=== PATIENT | female | born 1955 | race African-American/Black ===

== ENCOUNTER → 2022-04-08 10:02 | Outpatient (BNVA) | payer MEDICARE, SELFPAY | PROVIDERS: PCP Internal Medicine; Visit Provider Hospitalist | DX: R05.3 Chronic cough (principal); J45.41 Moderate persistent asthma with (acute) exacerbation | CPT/HCPCS: 94640; 99202 ==

== ENCOUNTER 2022-04-08 10:56 | Outpatient (REF) | payer MEDICARE, SELFPAY ==
[2022-04-08 11:18] LABS: MANUAL DIFF FLAG NO
[2022-04-08 11:47] LABS: Basophils Percent Auto 0.5 % (0-2); Eosinophils Absolute Auto 0.3 X10*3/uL (0.0-0.4); Eosinophils Percent Auto 6.2 % (0-4); Hematocrit 36.1 % (37.0-47.0); Imm Gran Abs Auto 0.01 X10*3/uL (0.00-0.03); Imm Gran Pct Auto 0.2 % (0.0-0.4); Lymphocytes Absolute Auto 0.7 X10*3/uL (1.2-4.9); Lymphocytes Percent Auto 12.6 % (20-40); Mean Corpuscular HGB Conc 30.5 g/dl (31.0-35.0); Mean Corpuscular Volume 85.3 fL (80.0-98.0); Mean Platelet Volume 11.2 fL (9.4-12.3); Monocytes Absolute Auto 0.4 X10*3/uL (0.1-1.2); Neutrophils Percent Auto 72.5 % (45-73); Platelet Count 222 X10*3/uL (160-400); Red Blood Count 4.23 X10*6/uL (4.20-5.50); Red Cell Distribution Width 12.7 % (11.0-16.0); White Blood Count 5.5 X10*3/uL (4.8-10.8)
[2022-04-08 12:15] LABS: Anion Gap 15 (12-20); Blood Urea Nitrogen 18 mg/dL (9-16); Calcium 9.2 mg/dL (8.4-10.2); Carbon Dioxide 27 mmol/L (22-29); Chloride 106 mmol/L (96-108); Estimated Glomerular Filt Rate > 60; Glucose Random 96 mg/dL (60-115); Potassium 3.7 mmol/L (3.3-5.1); Sodium 144 mmol/L (135-145)
[2022-04-08 13:06] LABS: Erythrocyte Sedimentation Rate 75 MM/HR (0-20)
[2022-04-10 12:37] LABS: Anti Nuclear Antibody Screen NEGATIVE (NEGATIVE)
[2022-04-10 14:41] LABS: IgA 97 mg/dL (70-320); IgG 1188 mg/dL (600-1540); IgM 222 mg/dL (50-300)
[2022-04-13 05:11] LABS: Angiotensin Converting Enzyme 58 U/L (9-67)
== END 2022-04-08 10:57 | disposition home or self-care (01) ==
LOC: HO.LAB 10:56
PROVIDERS: PCP Internal Medicine; Visit Provider Hospitalist
DX: J40 Bronchitis, not specified as acute or chronic (principal); J45.51 Severe persistent asthma with (acute) exacerbation; K21.9 Gastro-esophageal reflux disease without esophagitis; Z01.82 Encounter for allergy testing
CPT/HCPCS: 36415; 80048; 82164; 82784; 82785; 85025; 85652; 86003; 86038; 86039

== ENCOUNTER 2022-04-16 10:34 | Outpatient (REF) | payer MEDICARE, SELFPAY ==
--- NOTE | 2022-04-16 11:48 | PFT_ITS ---
FLOWS: FEV1 91% of predicted at 1.69 L. FVC 86% of predicted at 2.07 L. FEV1 to FVC ratio of 0.82. No bronchodilator response. LUNG VOLUMES: Total lung capacity 87% of predicted at 4.11 L. Residual volume 86% of predicted at 1.67 L. Slow vital capacity 76% of predicted at 2.44 L. Expiratory reserve volume 9% of predicted at 0.08 L. Diffusion capacity is normal. IMPRESSION: No obstructive or restrictive ventilatory defect. No bronchodilator response. Decreased expiratory reserve volume suggests extrathoracic restriction likely secondary to abdominal obesity. Raheel Saenz MD AP/MODL / [phone]
== END 2022-04-16 10:35 | disposition home or self-care (01) ==
LOC: HO.RESP 10:34
PROVIDERS: PCP Internal Medicine; Visit Provider Hospitalist
DX: J45.909 Unspecified asthma, uncomplicated (principal)
CPT/HCPCS: 94060; 94727; 94729

== ENCOUNTER → 2022-04-29 14:26 | Outpatient (BNVA) | payer MEDICARE, SELFPAY | PROVIDERS: PCP Internal Medicine; Visit Provider Hospitalist | DX: R05.3 Chronic cough (principal); J45.40 Moderate persistent asthma, uncomplicated; J40 Bronchitis, not specified as acute or chronic | CPT/HCPCS: 99212 ==

== ENCOUNTER → 2022-09-02 14:05 | Outpatient (BNVA) | payer MEDICARE, SELFPAY | PROVIDERS: PCP Physician Assistant Medical; Visit Provider Hospitalist | DX: J45.40 Moderate persistent asthma, uncomplicated (principal); R05.3 Chronic cough; G47.33 Obstructive sleep apnea (adult) (pediatric); Z99.89 Dependence on other enabling machines and devices | CPT/HCPCS: 99212 ==

== ENCOUNTER 2023-10-28 11:15 | Outpatient (AMB) | payer MEDICARE, SELFPAY ==
[2023-10-28 11:20] VITALS: PULSE 83; O2SAT 96; BMI 42.3
--- NOTE | 2023-10-28 11:20 | MHC.OFFVIS ---
Vital Signs 10/28/23 11:20 Height 5 ft 7 in Weight 270 lb BMI 42.3 Pulse 83 Pulse Source Pulse Oximeter Pulse Oximetry (%) 96 Oxygen Delivery Method Room Air Intake Visit Reasons: Cough Swatch Folder Required: No Allergies ciprofloxacin [From Cipro] Allergy (Severe, Verified 10/28/23 11:22) Unknown ampicillin Adverse Reaction (Severe, Verified 10/28/23 11:22) Diarrhea HPI Comments Details: The patient is a 67-year-old woman with a known history of chronic cough in addition to a component of seasonal allergies. Apparently she has had a significant cough now for many years. Seems to be getting worse now with increasing wheezing. The cough is typically productive. It is moderate in severity. It does affect her sleep. She did see her primary care doctor recently will was concern for a course of bronchitis with bronchospasms. She was treated effectively and she did feel better. However, when she completed the medicines her symptoms reoccurred. At that time she decided the patient needed to be seen by a specialist. The patient does have a rescue inhaler that she uses of partial response to therapy. As far as exposures she states that she has had allergies but she has never been tested. The patient denies any exposure to any mold or any farm animals. She denies owning a bird. Sometimes there is dust around but the patient does not working heavily dusted area. The patient on examination today does have significant wheezing and a component of stridor as well. In addition to that her cough is frequent going to coughing spells. Her cough tends to be course and likely may have a component central airway involvement she did have a chest x-ray that was read without any acute disease and this was done recently. In the office due to her significant wheezing she was provided with a DuoNeb treatment with some minimal improvement. The patient does need to start additional maintenance inhalers and also does need to go on prednisone. In the meantime she will undergo blood work including allergy testing and will have her undergo pulmonary function studies during the next visit I do believe that additional testing to assess for tracheobronchomalacia will be important. Also to note the patient had been on steroids in the past after she was diagnosed with uveitis. This brings up the possibility of underlying sarcoidosis that may manifest endobronchially resulting in hyper reactive airways. 04/29/2022 the patient is here for a pulmonary follow-up visit. Overall she is doing a little better. The patient did start using the Symbicort. Although was extremely expensive for her. I did encourage the next 10 to call the office to see if we can find her something more reasonable. For now she has and Symbicort she will just use once a day. It appears to be effective for her. In addition to that she is taking the azithromycin for the chronic bronchitis and is also helping some. 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 The patient also has significant allergies specially to Aspergillus, Penicillium and Alternaria. These mold allergies good with very severe the patient understands the concern. She states that her home she did have some water damage at some point but she has yet to look for mold. Now that she knows that she has significant mold allergies she is going to further looking to mold remediation. This is the bigger than that were barely she can just look into it. we did talk about considering biologic therapy to minimize the use of prednisone. She responds very good prednisone. She is a candidate for Dupixent specially with history of ectopic dermatitis and now significant Allergic asthma. She also may benefit from allergy shots. I did recommend she consider referral to an marketing reps sports and entertainment and I gave her information regarding that. She is going to think about it for now. 09/02/2022 the patient is here for pulmonary follow-up visit. The patient is doing better since we last spoke. She continues uses Symbicort. Although she is mainly using at nighttime before she uses her CPAP. The patient has been pretty stable. We did talk about her significant allergies to mold during the last visit and the degree of eosinophilia. The patient may be interested in following up with Allergy although she has a not done as of yet. I did give her some names of individuals to consider if she wants to have her allergies further evaluated. In the meantime she does have some wheezing on examination. Therefore she is agreeable to starting Singulair in order to optimize her allergy medications. She also should be using her Symbicort twice a day. The patient does not have any recent imaging studies laboratories to review. Otherwise she will follow-up be year's time. However, if she has any issues she can we call. If she decides to follow up with allergies she can always call us in order for us to put a referral if she would like. 10/28/2023 the patient is here for pulmonary follow-up visit. Overall she is doing well. Denies any significant worsening asthma symptoms. She did not have to follow-up with Allergy and she did try the Singulair but did not find it effective. Therefore she is continue with Symbicort that she has been finding helpful. Although she has not had to use it all the time. Sometimes she does use it as needed. The patient does have underlying allergies to dust mites in addition to mold. We did go through the list and just tested make sure that her house is clear of any mold. She does have carpets and she does have a vacuum cesspool cleaner with a HEPA filter that she can use cleaned the areas well. The patient otherwise doing well will follow-up in a year's time. She does continues uses CPAP as well. The CPAP therapy continues to be affecting beneficial. She does use it for more than 4 hours a night. [facility] Medical History (Updated 09/02/22 @ 14:15 by Carlos Wayne MD) GUNJAN on CPAP Uveitis Bronchitis Chronic cough Asthma Social History (Updated 04/08/22 @ 10:24 by Alanis Garcia Geovanny) Patient Tobacco Use Status: Never used Tobacco Review of Systems Const Denies fever(s) Eyes Reports no additional complaints ENT Reports nasal congestion and Reports nasal discharge Card Denies chest pain Resp Denies chest congestion, Reports cough, Denies stridor and Reports wheezing GI Reports no additional complaints Musc Reports no additional complaints Skin/Breast Denies rash Neuro Reports no additional complaints Brad/Lymph Denies easy bleeding, Denies easy bruising and Denies lymphadenopathy Aller/Immun Reports wheezing Physical Exam Vital Signs: Last Vital Signs Pulse 83 10/28/23 11:20 Pulse Ox 96 10/28/23 11:20 Oxygen Delivery Method Room Air 10/28/23 11:20 BMI result Body Mass Index 42.3 Const General: comfortable HEENT Head: Yes normal to inspection Eyes General: appearance normal, both eyes and all related structures Neck Neck: Yes supple Chest Chest palpation & inspection: normal inspection of the chest Resp Effort & Inspection: normal respiratory effort, no audible wheezes and no cough Auscultation: no rhonchi, no wheezes and diminished lung sounds Cardio Rate: regular rate Rhythm: regular rhythm Heart sounds: S1 normal heart sound present and S2 normal heart sound present GI Auscultation: normal bowel sounds Skin General skin exam: no rashes or lesions noted Extrem General: Yes no clubbing, cyanosis or edema Assessment & Plan Assessment & Plan (1) Asthma: Code(s): J45.909 - Unspecified asthma, uncomplicated Category: Medical Qualifiers: Asthma complication type: uncomplicated Asthma persistence: persistent Asthma severity: moderate Qualified Code(s): J45.40 - Moderate persistent asthma, uncomplicated (2) Chronic cough: Code(s): R05.3 - Chronic cough Category: Medical (3) GUNJAN on CPAP: Code(s): G47.33 - Obstructive sleep apnea (adult) (pediatric); Z99.89 - Dependence on other enabling machines and devices Category: Medical Plan continue Symbicort BID JACOB as needed stopped Singulair, not effective consider nebulizer consider referral to Allergy mold evaluation for her home F/U 12 months Medications: Changed From Symbicort 160-4.5 mcg/actuation (budesonide-formoterol) 2 puffs inhalation BID 30 days 10.2 grams 11RF NS J44.9 - Chronic obstructive pulmonary disease, unspecified To budesonide-formoterol 160-4.5 mcg/actuation 2 puffs inhalation BID 10.2 grams 11RF 30 days NS J44.9 - Chronic obstructive pulmonary disease, unspecified Coding Level of Care Code Est Pt Level 4 (78005) Diagnoses Moderate persistent asthma without complication J45.40 Asthma complication type: uncomplicated Asthma persistence: persistent Asthma severity: moderate Chronic cough R05.3 GUNJAN on CPAP G47.33; Z99.89 Time Spent (min) 17
== END 2023-10-28 11:52 | disposition home or self-care (01) ==
PROVIDERS: PCP Physician Assistant Medical; Visit Provider Hospitalist
DX: J45.40 Moderate persistent asthma, uncomplicated (principal); R05.3 Chronic cough; G47.33 Obstructive sleep apnea (adult) (pediatric); Z99.89 Dependence on other enabling machines and devices
CPT/HCPCS: 99214

== ENCOUNTER → 2023-10-28 11:15 | Outpatient (BNVA) | payer MEDICARE, SELFPAY | PROVIDERS: PCP Physician Assistant Medical; Visit Provider Hospitalist | DX: R05.3 Chronic cough (principal); J45.40 Moderate persistent asthma, uncomplicated; J30.89 Other allergic rhinitis; G47.33 Obstructive sleep apnea (adult) (pediatric); Z99.89 Dependence on other enabling machines and devices; Z88.9 Allergy status to unspecified drugs, medicaments and biological substances | CPT/HCPCS: 99212 ==

== ENCOUNTER 2024-10-27 08:35 | Outpatient (AMB) | payer MEDICARE, SELFPAY ==
[2024-10-27 08:39] VITALS: BP 124/68; PULSE 80; O2SAT 99; BMI 43.3
--- NOTE | 2024-10-27 08:39 | MHC.OFFVIS ---
Vital Signs 10/27/24 08:39 Height 5 ft 7 in Weight 276 lb 10.882 oz BMI 43.3 BP 124/68 Blood Pressure Location Lt brachial Position Sitting Pulse 80 Pulse Source Pulse Oximeter Pulse Oximetry (%) 99 Oxygen Delivery Method Room Air Intake Visit Reasons: 1yr f/u Asthma [employer] Supervisor Required: No Accompanied by: Self / Same As Patient Allergies ciprofloxacin [From Cipro] Allergy (Severe, Verified 10/27/24 08:42) Unknown ampicillin Adverse Reaction (Severe, Verified 10/27/24 08:42) Diarrhea HPI Comments Details: The patient is a 68-year-old woman with a known history of chronic cough in addition to a component of seasonal allergies. Apparently she has had a significant cough now for many years. Seems to be getting worse now with increasing wheezing. The cough is typically productive. It is moderate in severity. It does affect her sleep. She did see her primary care doctor recently will was concern for a course of bronchitis with bronchospasms. She was treated effectively and she did feel better. However, when she completed the medicines her symptoms reoccurred. At that time she decided the patient needed to be seen by a specialist. The patient does have a rescue inhaler that she uses of partial response to therapy. As far as exposures she states that she has had allergies but she has never been tested. The patient denies any exposure to any mold or any farm animals. She denies owning a bird. Sometimes there is dust around but the patient does not working heavily dusted area. The patient on examination today does have significant wheezing and a component of stridor as well. In addition to that her cough is frequent going to coughing spells. Her cough tends to be course and likely may have a component central airway involvement she did have a chest x-ray that was read without any acute disease and this was done recently. In the office due to her significant wheezing she was provided with a DuoNeb treatment with some minimal improvement. The patient does need to start additional maintenance inhalers and also does need to go on prednisone. In the meantime she will undergo blood work including allergy testing and will have her undergo pulmonary function studies during the next visit I do believe that additional testing to assess for tracheobronchomalacia will be important. Also to note the patient had been on steroids in the past after she was diagnosed with uveitis. This brings up the possibility of underlying sarcoidosis that may manifest endobronchially resulting in hyper reactive airways. 04/29/2022 the patient is here for a pulmonary follow-up visit. Overall she is doing a little better. The patient did start using the Symbicort. Although was extremely expensive for her. I did encourage the next 10 to call the office to see if we can find her something more reasonable. For now she has and Symbicort she will just use once a day. It appears to be effective for her. In addition to that she is taking the azithromycin for the chronic bronchitis and is also helping some. 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 The patient also has significant allergies specially to Aspergillus, Penicillium and Alternaria. These mold allergies good with very severe the patient understands the concern. She states that her home she did have some water damage at some point but she has yet to look for mold. Now that she knows that she has significant mold allergies she is going to further looking to mold remediation. This is the bigger than that were barely she can just look into it. we did talk about considering biologic therapy to minimize the use of prednisone. She responds very good prednisone. She is a candidate for Dupixent specially with history of ectopic dermatitis and now significant Allergic asthma. She also may benefit from allergy shots. I did recommend she consider referral to an drywall taper helper and I gave her information regarding that. She is going to think about it for now. 09/02/2022 the patient is here for pulmonary follow-up visit. The patient is doing better since we last spoke. She continues uses Symbicort. Although she is mainly using at nighttime before she uses her CPAP. The patient has been pretty stable. We did talk about her significant allergies to mold during the last visit and the degree of eosinophilia. The patient may be interested in following up with Allergy although she has a not done as of yet. I did give her some names of individuals to consider if she wants to have her allergies further evaluated. In the meantime she does have some wheezing on examination. Therefore she is agreeable to starting Singulair in order to optimize her allergy medications. She also should be using her Symbicort twice a day. The patient does not have any recent imaging studies laboratories to review. Otherwise she will follow-up be year's time. However, if she has any issues she can we call. If she decides to follow up with allergies she can always call us in order for us to put a referral if she would like. 10/28/2023 the patient is here for pulmonary follow-up visit. Overall she is doing well. Denies any significant worsening asthma symptoms. She did not have to follow-up with Allergy and she did try the Singulair but did not find it effective. Therefore she is continue with Symbicort that she has been finding helpful. Although she has not had to use it all the time. Sometimes she does use it as needed. The patient does have underlying allergies to dust mites in addition to mold. We did go through the list and just tested make sure that her house is clear of any mold. She does have carpets and she does have a vacuum wallpaper cleaner with a HEPA filter that she can use cleaned the areas well. The patient otherwise doing well will follow-up in a year's time. She does continues uses CPAP as well. The CPAP therapy continues to be affecting beneficial. She does use it for more than 4 hours a night. 10/27/2024 the patient is here for pulmonary follow-up visit. Overall she is doing very well. She did have an evaluation by Dermatology and was having significant atopic dermatitis. She was started on Dupixent. She was not aware that Dupixent would help her breathing but has significantly. Denies any significant wheezing or chest tightness especially now in the Dupixent. The Symbicort she has been able to decrease the amount. Overall she is doing well from an asthma standpoint. In addition to that she had been using her CPAP. CPAP therapy has been affecting beneficial. She does use it every night for more than 4 hours a night. Overall very effective for her. [facility] Medical History (Updated 09/02/22 @ 14:15 by Carlos Wayne MD) GUNJAN on CPAP Uveitis Bronchitis Chronic cough Asthma Social History (Updated 10/27/24 @ 08:43 by Portia Mcghee CMA) Alcohol intake: former Patient Tobacco Use Status: Never used Tobacco Review of Systems Const Denies chills, Denies fatigue, Denies fever(s), Denies weight gain and Denies weight loss Eyes Reports no additional complaints ENT Denies dizziness Card Denies chest pain, Denies leg edema, Denies lightheadedness, Denies palpitations, Denies dyspnea on exertion, Denies orthopnea and Denies other Resp Denies cough, Denies dyspnea on exertion and Reports wheezing GI Denies hematochezia and Denies change in stool character Musc Denies abnormal gait, Denies muscle weakness, Denies numbness, Denies radiating pain into limb and Denies tingling Skin/Breast Denies rash Neuro Denies abnormal gait, Denies dizziness, Denies numbness and Denies tingling Endo Denies fatigue and Denies palpitations Brad/Lymph Denies easy bleeding, Denies easy bruising and Denies lymphadenopathy Aller/Immun Reports wheezing Physical Exam Vital Signs: Last Vital Signs Pulse 80 10/27/24 08:39 BP 124/68 10/27/24 08:39 Pulse Ox 99 10/27/24 08:39 Oxygen Delivery Method Room Air 10/27/24 08:39 BMI result Body Mass Index 43.3 Const General: comfortable HEENT Head: Yes normal to inspection Eyes General: appearance normal, both eyes and all related structures Neck Neck: Yes supple Chest Chest palpation & inspection: normal inspection of the chest Resp Effort & Inspection: normal respiratory effort, no audible wheezes and no cough Auscultation: no rhonchi, no wheezes and diminished lung sounds Cardio Rate: regular rate Rhythm: regular rhythm Heart sounds: S1 normal heart sound present and S2 normal heart sound present GI Auscultation: normal bowel sounds Skin General skin exam: no rashes or lesions noted Extrem General: Yes no clubbing, cyanosis or edema Assessment & Plan Assessment & Plan (1) Asthma: Code(s): J45.909 - Unspecified asthma, uncomplicated Category: Medical Qualifiers: Asthma complication type: uncomplicated Asthma persistence: persistent Asthma severity: moderate Qualified Code(s): J45.40 - Moderate persistent asthma, uncomplicated (2) Chronic cough: Code(s): R05.3 - Chronic cough Category: Medical (3) GUNJAN on CPAP: Code(s): G47.33 - Obstructive sleep apnea (adult) (pediatric); Z99.89 - Dependence on other enabling machines and devices Category: Medical Plan continue Symbicort BID JACOB as needed stopped Singulair, not effective mold evaluation for her home continue APAP F/U 12 months Coding Level of Care Code Est Pt Level 4 (20749) Diagnoses Moderate persistent asthma without complication J45.40 Asthma complication type: uncomplicated Asthma persistence: persistent Asthma severity: moderate Chronic cough R05.3 GUNJAN on CPAP G47.33; Z99.89 Time Spent (min) 16
--- OUTSIDE RECORDS SUMMARY | 2024-10-27 08:51 | XMS_ITS | Data Portability ---
Author Organization [facility] Address [address] [facility],[address] [place] [address] Care Team Providers Care Mailing Manager Name Role Phone FAIZAN LYNNE Primary Care Provider Assessment Encounter Date Assessment Date Assessment LastModified by Organization Details LastModified Time 05/30/2020 05/30/2020 Gabby Klein i s a 64 year old woman with complaints of low back pain. Her worse pain is in her low back and radiates into her left lower extremity for the past one month. She is doing physical therapy. On exam, she has pain on flexion and a positive straight leg raising test on the left. She is here for a trial of Lumbar epidural steroid injections under fluoroscopic guidance . The risks and benefits of the procedure were discussed in detail. She wishes to proceed. She needs to follow up in four weeks. I have advised her to discuss her renal cysts with her PCP and she may need an ultrasound for assessment. [email or web address] Not available 06/04/2020 08:53:22 07/02/2020 07/02/2020 Gabby Klein i s a 64 year old woman with complaints of low back pain. Her worse pain is in her low back and radiates into her left lower extremity for the past one month. She is doing physical therapy. MRI Lumbar spine shows Grade 1 spondylolisthesis at L3-L4, L4-L5 and L5-S1 without spondylolysis with multilevel extensive bilateral facet arthrosis and multilevel disc bulging superimposed on developmental spinal canal stenosis. There is multilevel spinal stenosis, moderate to severe in degree, most apparent at L4-L5 with multilevel crowding of the intradural nerve roots. Multilevel predominately smbg-iw-dbsbmikl degrees of bilateral neural foraminal stenosis as described above. Probable multiple bilateral renal parapelvic cysts. She is doing well after a lumbar epidural steroid injection . She can follow up as needed for a repeat injection in three months. [email or web address] Not available 07/02/2020 08:40:09 10/17/2020 10/17/2020 Gabby Klein i s a 64 year old woman with complaints of low back pain. Her worse pain is in her low back and radiates into her left lower extremity for the past one month. She is doing physical therapy. On exam, she has pain on flexion and a positive straight leg raising test on the left. She is here for a Lumbar epidural steroid injections under fluoroscopic guidance . The risks and benefits of the procedure were discussed in detail. She wishes to proceed. She needs to follow up in four weeks. She is having neck pain and is getting a MRI Cervical spine done. She will forward the results. raynen Not available 10/18/2020 13:36:33 04/17/2021 04/17/2021 Gabby Klein is a 65 year old right handed woman with complaint's of neck pain radiating into left upper extremity. On exam, she has a positive Spurling's sign on the Left. MRI cervical spine shows Severe left foraminal narrowing and moderate right foraminal encroachment due to bony spurring at C3-C4. Hsiafiaq-dx-sgxohc bilateral foraminal narrowing at the C4-C5 level. Mild central canal stenosis and severe left foraminal narrowing due to a disc-osteophyte complex at the C5-C6 level. Small central disc protrusion and disc-osteophyte complex with mild central canal stenosis and severe foraminal encroachment at C6-C7. Severe left foraminal narrowing at the C7-T1 level I recommend a trial of cervical epidural steroid injection under fluoroscopic guidance. The risks and benefits of the procedure were discussed in detail . An appointment has been booked . She needs a delivery driver/supervisor on the day of the procedure. [email or web address] Not available 04/17/2021 15:23:46 04/29/2023 04/29/2023 Gabby Klein i s a 67 year old woman with left shoulder pain for the past three months . On exam ,she has pain on abduction and limited range of motion of her left shoulder. X-ray left shoulder shows moderate glenohumeral degenerative arthritis with calcific tendonitis She is here for a trial of Left shoulder steroid injection under? ? ?ultrasound guidance . The risks and benefits of the procedure? ? ? were discussed in detail. She wishes to proceed. She will follow up in four weeks. [email or web address] Not available 04/29/2023 16:19:35 Plan of Treatment Reminders Order Date Submit Date Provider Last Modified By Organization Details Last Modified Time Details Appointments None record ed. Lab None record ed. Referral None record ed. Procedures None record ed. Surgeries None record ed. Imaging None record ed. Medication Orders None record ed. Patient TargetsNo targets recorded. Patient Instructions Encounter Date Encounter Id Patient Instructions Last Modified By Organization Details Last Modified Time 05/30/2020 [id number] She was advised against bed rest lasting longer than four days and to continue activities as tolerated. [email or web address] Not available 05/30/2020 11:55:48 10/17/2020 [id number] She was advised against bed rest lasting longer than four days and to continue activities as tolerated. [email or web address] Not available 10/18/2020 13:34:30 04/17/2021 [id number] She was advised against bed rest lasting longer than four days and to continue activities as tolerated. [email or web address] Not available 04/17/2021 15:21:12 04/29/2023 [id number] She was advised against bed rest lasting longer than four days and to continue activities as tolerated. [email or web address] Not available 04/29/2023 16:18:24 Reason for Referral None Reported. Results Created Date Observation Date Name Description Value Unit Range Abnormal Flag Note LastModifiedBy Organization Detail LastModifiedTime 05/02/2005/01/2020 MRI, lumba r spine , w/o contr ast No observ ation record ed. [email or web address] [facility] [address] [address], [place], [address], 05/30/2020 15:42:01 Result Notes None recorded. Problems Name Problem SNOMED Code Status Onset Date Resolution Date Notes Provider Name and Address Organization Details Recorded Time Muscle pain 62040436 Active Tom sanchze MD [facility] [address] , [address], [facility] [place], [address] [facility] 0 09:17:04 Lumbosacral radiculopathy 7879448 Active 2019 Tom sanchez MD [address] , [address], [facility] [place], [address], [place] [facility] 0 11:55:04 Degeneration of lumbar intervertebral disc 12013447 Active 2019 Tom sanchez MD [address] , [address], [facility] [place], [address], [place] [facility] 0 11:55:05 Spinal stenosis of lumbar region 17167399 Active 2019 Tom sanchez MD [address] , [address], [facility] [place], [address], [place] [facility] 0 11:55:09 Problem Notes None recorded. Procedures Surgical History Date Name Laterality Status Provider Name and Address Organization Details Recorded Time 04/29/20 23 Intra-articular shoulder steroid injection under ultrasound guidance completed Tom Hwang MD [address] , [address], [place], [address], [place] [facility] 04/29/2023 16:17:29 10/18/19 21 Lumbar Epidural steroid injection under fluoroscopic guidance completed Tom Hwang MD [address] , [address], [place], [address], [place] [facility] 10/18/2020 13:35:30 05/30/20 20 Lumbar Epidural steroid injection under fluoroscopic guidance completed Tom Hwang MD [address] , [address], [place], [address], [place] [facility] 05/30/2020 11:53:48 excision of colon completed Tom Hwang MD [address] , [address], [place], [address], [place] [facility] 04/30/2020 09:20:50 procedure on axilla completed Tom Hwang MD [address] , [address], [place], [address], [place] [facility] 04/30/2020 09:21:21 Imaging Results Imaging Date Name Status LastModified by Organiz ation Details LastModified Time 05/01/2020 MRI, lumbar spine, w/o contrast completed [email or web address] [facility] [address] [facility] [address], [place], [address], 05/30/2020 15:42:01 Procedure Notes None recorded. Medical Equipment None Reported. Allergies Allergen ID Allergen Name Allergen Category Reaction Reaction Severity Criticality Documentation Date Start Date Code Code System Note Provider Name and Address Organization Details Recorded Time 14882 ampicilli n medicatio n diarrhea Not available Not available 04/30/2020 733 RxNorm Tom sanchez MD [facility] , [address], [place], [address], [facility] 0 09:15:52 Medications Name Sig Start Date Stop Date Status Note LastModified by Organization Details LastModified Time furosemide 40 mg tablet TAKE 1 TABLET BY MOUTH EVERY DAY active Not Available Not Available No t Available prednisone 20 mg tablet TAKE 1 TABLET BY MOUTH 2 TIMES PER DAY FOR FIVE DAYS, THEN ONE TABLET DAILY FOR FIVE DAYS 04/17 completed Not Available Not Available Not Available montelukast 10 mg tablet TAKE 1 TABLET BY MOUTH DAILY 04/29 completed Not Available Not Available Not Available hydrochloro thiazide 25 mg tablet TAKE 1 TABLET BY MOUTH EVERY DAY active Not Available Not Available No t Available furosemide 20 mg tablet TAKE 1 TABLET BY MOUTH EVERY DAY DIRECTED active Not Available Not Available No t Available losartan 100 mg tablet TAKE 1 TABLET BY MOUTH EVERY DAY active Not Available Not Available No t Available sulindac 200 mg tablet TAKE 1 TABLET BY MOUTH 2 TIMES PER DAY WITH FOOD FOR 30 DAYS 04/29 completed Not Available Not Available Not Available Symbicort 160 mcg-4.5 mcg/actuati on HFA aerosol inhaler INHALE 2 PUFFS TWICE A DAY active Not Available Not Available No t Available potassium chloride ER 20 mEq tablet,exte nded release TAKE 1 TABLET BY MOUTH EVERY DAY WITH FOOD active Not Available Not Available No t Available Fluad Quad (6 5yr up)(PF) 60 mcg (15 mcg x 4)/0.5mL IM syringe PHARMACY ADMINIST[facility] 04/30 completed Not Available Not Available Not Available Vitals Date Recorded Body height Heart rate Oxygen saturation Oxygen saturation in Arterial blood by Pulse oximetry Pain severity - 0-10 verbal numeric rating [Score] - Reported Systolic blood pressure Diastolic blood pressure Provider Name and Address Organization Details Last Updated DateTime 0 170.18 cm 75 /min 99 % 99 % 4 140 mm[Hg] 73 mm[Hg] David sanchez [facility] 0 11:26:55 Date Recorded Body height Heart rate Oxygen saturation Oxygen saturation in Arterial blood by Pulse oximetry Systolic blood pressure Diastolic blood pressure Provider Name and Address Organization Details Last Updated DateTime 1 170.18 cm 64 /min 96 % 96 % 150 mm[Hg] 69 mm[Hg] David sanchez [facility] 1 11:06:02 Date Recorded Body height Heart rate Oxygen saturation Oxygen saturation in Arterial blood by Pulse oximetry Pain severity - 0-10 verbal numeric rating [Score] - Reported Systolic blood pressure Diastolic blood pressure Provider Name and Address Organization Details Last Updated DateTime 1 170.18 cm 70 /min 96 % 96 % 2 160 mm[Hg] 80 mm[Hg] David Diaz n [place] [facility] 1 14:40:26 Date Recorded Heart rate Oxygen saturation Oxygen saturation in Arterial blood by Pulse oximetry Pain severity - 0-10 verbal numeric rating [Score] - Reported Systolic blood pressure Diastolic blood pressure Provider Name and Address Organization Details Last Updated DateTime 3 71 /min 99 % 99 % 8 153 mm[Hg] 65 mm[Hg] Lily Sun [place] [facility] 3 14:37:18 Social History Question Answer Notes LastModified by Organizat ion Details LastModified Time Tobacco Smoking Status Never Smoker Tom Hwang MD [facility] , [address], [place], [address], [place] [facility] 04/30/2020 09:18:09 What Is Your Level Of Alcohol Consumption? 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 Information not available 04/30/2020 Live Alone Or With Others? Alone Information not available 04/30/2020 Marital Status Single javed Information not available 04/30/2020 Sex: Unknown Functional Status None recorded. Mental Status None recorded. Family History Relationship Description Onset Age of this Age Resolved Age Notes LastModified by Organization Details LastModified Time Father Hypertensive disorder javed Not available 07/2019 09:17:44 Mother Hypertensive disorder raynen Not available 07/2019 09:17:44 Medical History Condition Response Arthritis Y Hypertension Y Gynecological HistoryNo gynecological history recorded. Obstetrics History GPAL:G 0 P 0 0 0 0 Past Encounters Encounter ID Performer Location Encounter Start Date Encounter Closed Date Diagnosis/Indication Diagnosis SNOMED-CT Code Diagnosis ICD10 Code Diagnosis Note [id number] Tom Hwang MD PAIN OFFICE [address] [facility] [place] [address] 04/30/2020 08:44:09 04/30/2020 13:36:25 Muscle pain 09937297 M79.10 Lumbosacra l radiculopathy 4802917 M54.17 Degenerati on of lumbar intervertebral disc 66048158 M51.36 [id number] Tom Hwang MD PAIN OFFICE [address] [facility] [place] [address] 05/30/2020 11:22:57 05/30/2020 11:58:28 Spinal stenosis of lumbar region 24693037 M48.062 Muscle pain 36236468 M79 .18 Degenerati on of lumbar intervertebral disc 60700076 M51.36 Lumbosacra l radiculopathy 0939551 M54.17 [id number] Tom Hwang MD [facility] [address] [facility] [place] [address] 07/02/2020 08:30:07 07/02/2020 09:04:26 Muscle pain 58824854 M79.10 Lumbosacra l radiculopathy 9591292 M54.17 Degenerati on of lumbar intervertebral disc 31005680 M51.36 [id number] Tom Hwang MD PAIN OFFICE [address] [facility] [place] [address] 10/17/2020 11:02:00 10/18/2020 13:38:47 Spinal stenosis of lumbar region 02915824 M48.062 Muscle pain 38363571 M79 .18 Degenerati on of lumbar intervertebral disc 84500262 M51.36 Lumbosacra l radiculopathy 6617082 M54.17 [id number] Tom Hwang MD PAIN OFFICE [address] [facility] [place] [address] 04/17/2021 14:35:13 04/17/2021 15:24:20 Degeneration of cervical intervertebral disc 00403580 M50.30 Cervical radiculopathy 99068757 M54.12 Cervical s pondylosis without myelopathy 606126749 M47.812 [id number] Tom Hwang MD [facility] [address] [place] [address] 04/29/2023 14:27:29 04/29/2023 16:24:25 Inflammation of joint of shoulder region 203496042 M19.012 Health Concerns Section Related Observation LastModified by Organization Detai ls LastModified Time None Recorded Concern Status LastModified by Organization Details LastModified Time None Recorded Advance Directives Directive None Recorded Payers Encounter Date Sequence Insurance Name Policy Number Policy Vaughan Covered Member ID Vaughan Member ID Guarantor Name 05/30/2020 1 [place] PPO) [id number] Gabby Klein [id number] Gabby Klein 07/02/2020 1 [place]PO) [id number] Gabby Klein [id number] Gabby Klein 10/17/2020 1 [place]PO) [id number] Gabby Klein [id number] Gabby Klein 04/17/2021 1 [place]PO) [id number] Gabby Klein [id number] Gabby Klein 04/29/2023 1 [place]PO) [id number] Gabby Klein [id number] Gabby Klein Notes Date Note Type Note Provider Name and Address Organization Details Recorded Time 05/30/2020 text/html She is here for a trial of lumbar epidural steroid injection under fluoroscopic guidance.I have reviewed MRI results with her today. MRI Lumbar spine shows Grade 1 spondylolisthesis at L3-L4, L4-L5 and L5-S1 without spondylolysis with multilevel extensive bilateral facet arthrosis and multilevel disc bulging superimposed on developmental spinal canal stenosis. There is multilevel spinal stenosis, moderate to severe in degree, most apparent at L4-L5 with multilevel crowding of the intradural nerve roots. Multilevel predominately klen-ms-evwnbubz degrees of bilateral neural foraminal stenosis as described above. Probable multiple bilateral renal parapelvic cysts Tom Hwang MD [address] [facility] [address] [address], [place], [address], [facility] 06/04/2020 08:53:59 07/02/2020 text/html This is a follow up after a lumbar epidural steroid injection under fluoroscopic guidance. She reports 90% pain relief which is ongoing. She is walking better and has been walking one mile a day or more. She is complaining of occasionally achiness in her low back . She has no history of bladder or bowel incontinence.She is working with a strainer cleaner and continuing with a home exercise program. Tom Hwang MD [address] [facility] , [address] [address], [place], [address], [facility] 07/02/2020 09:05:48 10/17/2020 text/html She is here for a lumbar epidural steroid injection under fluoroscopic guidance. Tom Hwang MD [address] , [facility] [address], [place], [address], [facility] 10/19/2020 10:58:50 04/17/2021 text/html She is here for a follow up. She is a right handed woman with complaints of neck pain radiating into left upper extremity. The pain started spontaneously two years ago and is becoming greater for the past 3 months. She describes the pain as a burning, shooting pain with numbness and tingling in her left hand . Current pain level is 5/10. Turning to the left aggravates her pain. Nothing relieves the pain. Pain interferes with sleep. She has no history of bladder or bowel incontinence.She has trialed physical therapy with traction and had minimal pain benefit. She had a course of oral steroids with minimal pain benefit. She is doing a home stretching exercise program with persistent pain.MRI Cervical spine shows Extensive multilevel cervical spondylosis with anterior subluxations at the C3-C4 and C4-C5 levels. Exuberant end plate osteophyte formation and facet arthropathy. Severe left foraminal narrowing and moderate right foraminal encroachment due to bony spurring at C3-C4. Vxtqhrgq-hj-wzeich bilateral foraminal narrowing at the C4-C5 level. Mild central canal stenosis and severe left foraminal narrowing due to a disc-osteophyte complex at the C5-C6 level. Small central discprotrusion and disc-osteophyte complex with mild central canal stenosis and severe foraminal encroachment at C6-C7. Severe left foraminal narrowing at the C7-T1 level. Tom Hwang MD [address] [facility] , [address], [place], [address], [facility] 04/18/2021 08:38:14 04/29/2023 text/html She is here for a follow up. She was last seen on 04/17/2021 for neck pain radiating into left upper extremity. She is S/P ACDF by Dr. Raffaele Solano and feels she is better. She still has some numbness at times. She has left shoulder pain X-ray shows moderate glenohumeral osteoarthritis with calcific tendonitis. She has limited range of motion. Tom Hwang MD [address] , [address], [place], [address], [facility] 04/29/2023 16:27:56 OBGyn Episode No OBEpisode recorded.
--- OUTSIDE RECORDS SUMMARY | 2024-10-27 08:51 | XMS_ITS | Continuity of Care Document ---
Author Organization [facility] [address] [place] [address] Phone [phone] Care Team Providers Care Land Developer Name Role Phone Sylvia Glynn Care Team Information Re ceiver [phone] Problems Active Problems Provider Date Hyperprolactinemia Ugo Doyle M.D. Onset : 06/15/2023 Social History Type Date Description Comments Sex Unknown ETOH Use Occasionally consumes alcoho l Tobacco Use Start: Unknown Patient has never smoked Allergies and adverse reactions Active Allergies Criticality Reaction Severity Comments Date Ampicillin Unable to assess criticality 06/18/2022 Ciprofloxacin Unable to assess criticality 06/18/2022 Medications Active Medications SIG Qnty Indications Ordering Provider Date Otcupkaao391-6.5mcg/Ac t Aerosol 2 puffs twice daily Carlos Wayne Atlytkiknekgkssjilw32u g Tablets 1 tab by mouth every day 90tabs Maury Trevino M.D. Losartan Gefbqfaln676bv Tablets 1 tab by mouth every day Maury Trevino M.D. Vital Signs Date Vital Result Comment 06/18/2023 10:02am Height 67 inches 5'7 Weight 378.00 lb BMI (Body Mass Index) 59.2 kg/m2 Results Test Acquired Date Facility Test Result H/L Range N ote TSH With Reflex To FT4 06/12/2023 [facility] TSH With Reflex To FT4 2.84 uIU/mL (0.4-4.2) Prolactin 06/12/2023 [facility] Prolactin 42.1 NG/ML High (4.8-23.3 ) Medical Devices Description No Information Available Encounters Type Date Location Provider Dx Diagnosis Office Visit 06/18/2023 10:15a Main Office Ugo Doyle M.D. E22.1 Hyperprolactinemia Assessments Date Code Description Provider 06/18/2023 E22.1 Hyperprolactinemia Ugo butt M.D. Plan of Treatment No Information Available Functional Status Description No Information Available Mental Status Description No Information Available Referrals Description No Information Available
== END 2024-10-27 09:00 | disposition home or self-care (01) ==
LOC: HO.HPS 08:36
PROVIDERS: PCP Physician Assistant Medical; Visit Provider Hospitalist
DX: J45.40 Moderate persistent asthma, uncomplicated (principal); R05.3 Chronic cough; G47.33 Obstructive sleep apnea (adult) (pediatric); Z99.89 Dependence on other enabling machines and devices
CPT/HCPCS: 99214

== ENCOUNTER → 2024-10-27 08:35 | Outpatient (BNVA) | payer MEDICARE, SELFPAY | PROVIDERS: PCP Physician Assistant Medical; Visit Provider Hospitalist | DX: J45.40 Moderate persistent asthma, uncomplicated (principal); R05.3 Chronic cough; G47.33 Obstructive sleep apnea (adult) (pediatric); Z99.89 Dependence on other enabling machines and devices | CPT/HCPCS: 99212 ==